=== PATIENT | female | born 1975 | race Caucasian/White ===

== ENCOUNTER 2023-04-30 19:27 | Outpatient (REF) | payer BC, SELFPAY ==
[2023-05-04 10:08] LABS: Age Gdln ACOG Testing Note (.); HPV Aptima Negative (Negative); IGP, Aptima HPV, rfx 16/18,45 Note (.)
== END 2023-04-30 19:28 | disposition home or self-care (01) ==
LOC: LAB 19:27
PROVIDERS: Visit Provider Obstetrics & Gynecology
DX: Z12.4 Encounter for screening for malignant neoplasm of cervix (principal)
CPT/HCPCS: G0145

== ENCOUNTER 2024-05-04 20:50 | Outpatient (REF) | payer BC, SELFPAY ==
[2024-05-08 18:08] LABS: Age Gdln ACOG Testing Note (.); HPV Aptima Negative (Negative); IGP, Aptima HPV, rfx 16/18,45 Note (.)
== END 2024-05-04 20:51 | disposition home or self-care (01) ==
LOC: LAB 20:50
PROVIDERS: Visit Provider Obstetrics & Gynecology
DX: Z01.419 Encounter for gynecological examination (general) (routine) without abnormal findings (principal)
CPT/HCPCS: 87624; 88175

== ENCOUNTER 2024-11-14 08:32 | Outpatient (OUT) | payer BC, SELFPAY ==
--- OUTSIDE RECORDS SUMMARY | 2024-11-14 08:37 | XMS_ITS | CCD ---
Author Organization [facility] Care Team Providers Care Oil Field Rig Builder Name Role Phone DR KAYLEE BARONE Admitting Unavailable ABISAI, DR KAYLEE Zaragoza Attending Unavailable ABISAI, DR KAYLEE Zaragoza Primary Care Unavailable ABISAI, DR KAYLEE Zaragoza Consulting Unavailable MEG, DR HINES Admitting Unavailable MEG, DR HINES Attending Unavailable ABISAI, DR KAYLEE Zaragoza Primary Care Unavailable MEG, DR HINES Consulting Unavailable MEG, DR HINES Admitting Unavailable MEG, DR HINES Attending Unavailable ABISAI, DR KAYLEE Zaragoza Primary Care Unavailable [place], DR IVANA Garcia Consulting Unavailable MEG, DR HINES Consulting Unavailable Kaylee Barone Unavailable Kaylee Barone MD Primary Care Provider [phone] Jeffing FIELD PIPE LINES SUPERVISOR, Olamide De La Torre Unavailable [phone] FLORA WEAVER Attending Unavailable FLORA WEAVER Referring Unavailable HARSHA ROCHA Attending Unavailable HARSHA ROCHA Attending Unavailable Jany Mata MD Primary Care Provider Kaylee Barone MD Unavailable [phone] ISRAEL DILLARD Attending Unavailable JANY MATA Primary Care Unavailable Allergies Allergy Classification Reported Allergen(s) Allergy Type Date of Onset Reaction(s) Facility (1 source) Amino Acids Drug Allergy [facility] Repository (2 sources) Iodine Drug Allergy 09-20-2013 swelling [facility] (1 source) Povidone-Iodine Drug Allergy 05-03-2014 [facility] (10 sources) Iodine Drug Allergy 12-27-1998 Other [facility] Healthcare Work Phone: (10 sources) Lisinopril Allergy to substance 02-27-2023 [facility] Healthcare (10 sources) Povidone-Iodine Drug Allergy 02-27-2023 [facility] Healthcare (12 sources) Povidone-Iodine; Translations: [POVIDONE-IODINE ] Drug All[facility] 07-08-2015 [facility] Medications Current Medications Medication Drug Class(es) Dates Sig (Normalized) Sig (Original) hydroCHLOROthiazide 25 mg oral tablet (11 sources) Thiazide Diuretic Start: 7 hydroCHLOROthiazide (HYDRODiuril) 25 MG tablet 05/29/2017 Active levothyroxine sodium 0.15 mg oral tablet (12 sources) l-Thyroxine Start: 7 take 1 tablet by mouth once daily before breakfast levothyroxine (SYNTHROID) 150 mcg tablet Take 1 tablet by mouth daily before breakfast. 90 tablet 2 04/09/2017 Active Start: 05-29-2015 levothyroxine (Synthroid, Levoxyl) 175 MCG tablet 05/29/2015 Active take 1 tablet by jameel th once daily before breakfast Levothyroxine Sodium 175 MCG TAKE 1 TABLET BY MOUTH EVERYDAY BEFORE BREAKFAST Oral for 90 days Active losartan potassium 50 mg oral tablet (11 sources) Angiotensin 2 Receptor Hosea Start: 05-29-2017 losartan (Cozaar) 50 MG tablet 05/29/2017 Active polyethylene glycol 3350 013874 mg / potassium chloride 2970 mg / sodium bicarbonate 6740 mg / sodium chloride 5860 mg / sodium sulfate 41689 mg powder for oral solution (1 source) Osmotic Laxative Start: 09-16-2024 End: 09-16-2024 peg 3350-Electrolytes (GOLYTELY) 236-22.74-6.74 -5.86 gram suspension Indications: Colon cancer screening Take 4,000 mL by mouth one time only for 1 dose. Refer to printed prep instructions from your provider. 4000 mL 09/16/2024 09/16/2024 Active Problems Active Problems Problem Classification Problem Date Documented Date Episodic/Chronic Cancer of thyroid (1 source) Malignant tumor of thyroid gland; Translations: [Malignant neoplasm of thyroid gland] Onset: 07-08-2015 07-08-2015 Chronic Diabetes mellitus without complication (1 source) Impaired fasting glucose Episodic Essential hypertension (6 sources) Essential (primary) hypertension; Translations: [Essential hypertension] Onset: 04-20-2022 Chronic Immunizations and screening for infectious disease (1 source) Encounter for screening for human papillomavirus (HPV); Translations: [ENC SCREENING HUMAN PAPILLOMAVIRUS] Onset: 04-04-2022 Episodic Neoplasms of unspecified nature or uncertain behavior (2 sources) Neoplasm of uncertain behavior of skin; Translations: [Neoplasm of uncertain behavior of skin] 08-25-2024 Episodic Other acquired deformities (4 sources) Contracture of joint of left ankle; Translations: [Contracture, left ankle] 08-25-2024 Chronic Other connective tissue disease (4 sources) Pain in left foot; Translations: [Pain in left foot] 08-25-2024 Episodic Other connective tissue disease (2 sources) Calcaneal spur of left foot; Translations: [Calcaneal spur, left foot] 08-25-2024 Episodic Other connective tissue disease (4 sources) Plantar fasciitis; Translations: [Plantar fascial fibromatosis] 08-25-2024 Episodic Other screening for suspected conditions (not mental disorders or infectious disease) (12 sources) Encounter for screening mammogram for malignant neoplasm of breast; Translations: [Encounter for screening for malignant neoplasm of cervix] Onset: 04-03-2022 Episodic Residual codes; unclassified (1 source) Family history of malignant neoplasm of breast; Translations: [FAMILY HX MALIG NEOPLASM OF BREAST] Onset: 04-25-2022 Episodic Thyroid disorders (1 source) Hypothyroidism, unspecified; Translations: [HYPOTHYROIDISM UNSPECIFIED] Onset: 04-25-2022 Chronic Viral infection (6 sources) Plantar wart of left foot; Translations: [Plantar wart] Episodic Past or Other Problems Problem Classification Problem Date Documented Da te Episodic/Chronic Cancer of thyroid (1 source) History of malignant neoplasm of thyroid; Translations: [Personal history of malignant neoplasm of thyroid] Onset: 08-08-2016 08-08-2016 Episodic Results Test Name Value Interpretation Reference Range Facility BI MAMMOGRAM SCREENING TOMOS YNTHESIS BILATERALon 06-15-2024 BI MAMMOGRAM SCREENING TOMOSYNTHESIS BILATERAL This is a summary report. The complete report is available in the patient's medical record. If you cannot access the medical record, please contact the sending organization for a detailed fax or copy. Examination: BI MAMMOGRAM SCREENING TOMOSYNTHESIS BILATERAL Clinical History: Breast cancer screening Technique: Screening digital mammography study of both breasts was performed with 2-D and 3-D tomosynthesis imaging. Study was compared to the prior exam dated 04/20/2022. Findings: There is no evidence of interval dominant spiculated mass, grouped microcalcifications, or skin thickening which would be suggestive of malignancy. A few benign-appearing calcifications are seen on the left. Axillary lymph node is noted on the right. IMPRESSION: Impression: No specific evidence of malignancy seen in either breast. BIRADS 2 - Benign DENSITY: The breasts are almost entirely fatty FOLLOW-UP: Routine Screening Mamm ELECTRONICALLY SIGNED BY: Be Almazan M.D. Normal Not Available IGP,APTIMA HPV,AGE GDLNon AGE GDLN ACOG TESTING Note . [facility] Comment on above: TESTS RESULT FLAG UN ITS REF RANGE LAB Clinician Provided Cytology Information Source.............Vagina No. of containers..01 ThinPrep Vial Age Algo ACOG Jennifer... - 01 FLAG LEGEND: L-Low Normal,H-High Normal,LL-Alert Low,HH-Alert High <-Panic Low,>-Panic High,A-Abnormal,AA-Critical Abnormal Performed at: 01 =G [address] [id number] Radha George MD, HPV APTIMA Negative Negative [facility] Comment on above: This nucleic acid am plification test detects fourteen high- risk HPV types (16,18,31,33,35,39,45,51,52,56,58,59,66,68) without differentiation. Performed at: =G - [facility] [address] [id number] Senior Project Engineer: Radha George MD, Phone: [phone] Performed at: - [facility] [id number] Senior Project Engineer: Radha George MD, Phone: [phone] IGP, APTIMA HPV, RFX 16/18,45 Note . [facility] Comment on above: TESTS RESULT FLAG UN ITS REF RANGE LAB DIAGNOSIS: 02 NEGATIVE FOR INTRAEPITHELIAL LESION OR MALIGNANCY. Specimen adequacy: 02 Satisfactory for evaluation. Performed by: 02 Zena Tariq, Systems Engineer (ASCP) . 02 Note: Note 02 The Pap smear is a screening test designed to aid in the detection of premalignant and malignant conditions of the uterine cervix. It is not a diagnostic procedure and should not be used as the sole means of detecting cervical cancer. Both false-positive and false-negative reports do occur. Test Methodology: Note 02 This liquid based ThinPrep(R) pap test was screened with the use of an image guided system. HPV Genotype Reflex Note 02 Criteria not met, HPV Genotype not performed. FLAG LEGEND: L-Low Normal,H-High Normal,LL-Alert Low,HH-Alert High <-Panic Low,>-Panic High,A-Abnormal,AA-Critical Abnormal Performed at: [address] [place] [address] Radha George MD, [facility] e CBC AUTO DIFFon 04-20-2022 BASO # 0.1 103/ul Normal 0.0-0.1 [facility] Comment on above: Performed By: #### C BC #### [facility] [address] [address] [address] Shell Bryant Basophils/100 WBC (Bld) 0.9 % Normal 0.2-2.0 [facility] Comment on above: Performed By: #### C BC #### [facility] [address] [address] [address] Shell Bryant EO # 0.2 103/ul Normal 0.0-0.7 [facility] Comment on above: Performed By: #### C BC #### [facility] [address] [address] [address] Shell Bryant Eosinophils/100 WBC (Bld) 2.8 % Normal 0.9-7.0 [facility] Comment on above: Performed By: #### C BC #### [facility] [address] [address] [address] Shell Bryant Erythrocyte distribution width (RBC) [Ratio] 12.6 % Normal 11.0-15.0 [facility] Comment on above: Performed By: #### C BC #### [facility] [address] [address] [address] Shell Bryant Hematocrit (Bld) [Volume fraction] 42.3 % Normal 36.0-48.0 [facility] Comment on above: Performed By: #### C BC #### [facility] [address] [address] [address] Shell Bryant Hemoglobin (Bld) [Mass/Vol] 14.1 g/dL Normal 12.0-16.0 [facility] Comment on above: Performed By: #### C BC #### [facility] [address] [address] [address] Shell Bryant IG # 0.01 10e3/ul Normal 0.00-0.03 [facility] Comment on above: Performed By: #### C BC #### [facility] [address] [place] [address] Dr. Shell Bryant IG % 0.1 % Normal 0.0-0.5 [facility] Comment on above: Performed By: #### C BC #### [facility] [address] [place] [address] Dr. Shell Bryant LYMPH # 2.0 103/ul Normal 1.2-3.8 [facility] Comment on above: Performed By: #### C BC #### [facility] [address] [place] [address] Dr. Shell Bryant Lymphocytes/100 WBC (Bld) 26.5 % Normal 20.5-60.0 [facility] Comment on above: Performed By: #### C BC #### [facility] [address] [place] [address] Dr. Shell Bryant MANUAL DIFF REQ NO Normal [facility] Comment on above: Performed By: #### C BC #### [facility] [address] [place] [address] Dr. Shell Bryant MCH (RBC) [Entitic mass] 29.7 pg Normal 26.7-34.0 [facility] Comment on above: Performed By: #### C BC #### [facility] [address] [place] [address] Dr. Shell Bryant MCHC (RBC) [Mass/Vol] 33.3 g/dL Normal 29.9-35.2 [facility] Comment on above: Performed By: #### C BC #### [facility] [address] [place] [address] Dr. Shell Bryant MCV (RBC) [Entitic vol] 89.1 fL Normal 81.0-99.0 [facility] Comment on above: Performed By: #### C BC #### [facility] [address] [place] [address] Dr. Shell Bryant MONO # 0.7 103/ul Normal 0.3-0.8 [facility] Comment on above: Performed By: #### C BC #### [facility] [address] [place] [address] Dr. Shell Bryant Monocytes/100 WBC (Bld) 9.6 % Normal 1.7-12.0 [facility] Comment on above: Performed By: #### C BC #### [facility] [address] [place] [address] Dr. Shell Bryant NEUT # 4.5 103/ul Normal 1.4-6.5 [facility] Comment on above: Performed By: #### C BC #### [facility] [address] [place] [address] Dr. Shell Bryant Neutrophils/100 WBC (Bld) 60.1 % Normal 43.0-75.0 [facility] Comment on above: Performed By: #### C BC #### [facility] [address] [place] [address] Dr. Shell Bryant Platelet mean volume (Bld) [Entitic vol] 9.5 fL Normal 9.5-13.5 [facility] Comment on above: Performed By: #### C BC #### [facility] [address] [place] [address] Dr. Shell Bryant PLT 233 103/ul Normal 150-450 [facility] Comment on above: Performed By: #### C BC #### [facility] [address] [place] [address] Dr. Shell Bryant RBC 4.75 106/ul Normal 4.20-5.40 [facility] Comment on above: Performed By: #### C BC #### [facility] [address] [place] [address] Dr. Shell Bryant WBC 7.5 103/ul Normal 4.0-11.0 [facility] Comment on above: Performed By: #### C BC #### [facility] [address] [place] [address] Dr. Shell Bryant FREE T4on 04-20-2022 Free T4 [Mass/Vol] 1.29 ng/dL Normal 0.76-1.46 [facility] Comment on above: Performed By: #### F T4 #### [facility] [address] [address] [address] Shell Bryant MG MAMM SCREEN 3D LEW CADon 04-20-2022 MG MAMM SCREEN 3D LEW CAD Patient: NAYANA CAMARGO Exam Date: 04/20/2022 : 1975 Gender:F Ordering : DR FLORA WEAVER . Admission #: [id number] Family : DR KAYLEE BARONE M.D. Order #: [id number] CLICK HERE TO VIEW EXAM RADIOLOGY REPORT PROCEDURE: MAMMOGRAM SCREENING 3D BILATERAL CAD COMPARISON: MG MAMM SCREEN LEW W CAD, 11/26/2017. MG MAMM SCREEN LEW W CAD, 11/28/2018. INDICATIONS: Screening for malignant neoplasm of breast Calculator Name NCI Breast Cancer Risk Assessment Tool 5 Year Breast Cancer Risk 1.60% Lifetime Breast Cancer Risk 17.60% Personal Breast Cancer No Personal Ovarian Cancer No Treatments Thyroidectomy with Chemotherapy Family Cancers Mother with breast cancer at age 56. LOCATION: [facility] BREAST COMPOSITION: Scattered areas fibroglandular density. FINDINGS: DIAGNOSTIC CATEGORY 1--NEGATIVE. NO CHANGE FROM COMPARISON ASSESSMENT. Scattered benign-appearing calcifications are present. RIGHT BREAST: No significant suspicious finding. LEFT BREAST: No significant suspicious finding. RECOMMENDATIONS: ROUTINE MAMMOGRAM AND CLINICAL EVALUATION IN 12 MONTHS. PLEASE NOTE: A NORMAL MAMMOGRAM DOES NOT EXCLUDE THE POSSIBILITY OF BREAST CANCER. A CLINICALLY SUSPICIOUS PALPABLE LUMP SHOULD BE BIOPSIED. Dictated by: Ivana Fajardo MD on 04/20/2022 at 13:24 Approved by: Ivana Fajardo MD on 04/20/2022 at 13:36 Normal [facility] PROF CHEM 8 (BAS METB)on Anion gap [Moles/Vol] 12.7 mmol/L Normal [facility] Comment on above: Performed By: #### B MP, TSH #### [facility] [address] [address] [address] Shell Bryant Calcium [Mass/Vol] 8.7 mg/dL Normal 8.5-10.1 [facility] Comment on above: Performed By: #### B MP, TSH #### [facility] [address] [address] [address] Shell Bryant Chloride [Moles/Vol] 103 mmol/L Normal 98-107 [facility] Comment on above: Performed By: #### B MP, TSH #### [facility] [address] [address] [address] Shell Bryant CO2 [Moles/Vol] 28.1 mmol/L Normal 21.0-32.0 [facility] Comment on above: Performed By: #### B MP, TSH #### [facility] [address] [address] [address] Shell Bryant Creatinine [Mass/Vol] 0.80 mg/dL Normal 0.55-1.02 [facility] Comment on above: Performed By: #### B MP, TSH #### [facility] [address] [address] [address] Shell Bryant EGFR-AF AUSTRIAN >60 Normal >=60 [facility] Comment on above: Performed By: #### B MP, TSH #### [facility] [address] [address] [address] Shell Bryant EGFR-NON AF AUSTRIAN >60 Normal >=60 [facility] Comment on above: Performed By: #### B MP, TSH #### [facility] [address] [address] [address] Shell Bryant Glucose [Mass/Vol] 111 mg/dL Critically high 74-[address] [facility] Comment on above: Performed By: #### B MP, TSH #### [facility] [address] [address] [address] Shell Bryant Potassium [Moles/Vol] 3.8 mmol/L Normal 3.5-5.1 [facility] Comment on above: Performed By: #### B MP, TSH #### [facility] [address] [address] [address] Shell Bryant Sodium [Moles/Vol] 140 mmol/L Normal 136-145 [facility] Comment on above: Performed By: #### B MP, TSH #### [facility] [address] [address] [address] Shell Bryant Urea nitrogen [Mass/Vol] 17.0 mg/dL Normal 7.0-18.0 [facility] Comment on above: Performed By: #### B MP, TSH #### [facility] [address] [place] [address] Dr. Shell Bryant Urea nitrogen/Creatinine [Mass ratio] 21.2 mg/mg Normal [facility] Comment on above: Performed By: #### B MP, TSH #### [facility] [address] [place] [address] Dr. Shell Bryant TSHon 04-20-2022 TSH 0.469 uIU/mL Normal 0.358-3.740 [facility] Comment on above: Performed By: #### B MP, TSH #### [facility] [address] [place] [address] Dr. Shell Bryant PAP ACOG PANEL 2: 30 to 65on 04-07-2022 . . Normal [facility] Comment on above: Result Comment: Perf ormed at: WB Performed By: #### [id number] #### [facility] [address] [place] [address] Dr. Shell Bryant Age Gdln ACOG Testing -66 [facility] Comment on above: Performed By: #### [id number] #### [facility] [address] [place] [address] Dr. Shell Bryant DIAGNOSIS: Comment Normal [facility] Comment on above: Result Comment: NEGA TIVE FOR INTRAEPITHELIAL LESION OR MALIGNANCY. Performed at: WB Performed By: #### [id number] #### [facility] [address] [place] [address] Dr. Shell Bryant HPV Aptima Negative Normal Negative [facility] Comment on above: Result Comment: This nucleic acid amplification test detects fourteen high-risk HPV types (16,18,31,33,35,39,45,51,52,56,58,59,66,68) without differentiation. Performed at: =G Performed By: #### [id number] #### [facility] [address] [place] [address] Dr. Shell Bryant Methodology: Comment Normal [facility] Comment on above: Result Comment: This liquid based ThinPrep(R) pap test was screened with the use of an image guided system. Performed at: WB Performed By: #### [id number] #### [facility] [address] [place] [address] Dr. Shell Bryant Note: Comment Normal [facility] Comment on above: Result Comment: The Pap smear is a screening test designed to aid in the detection of premalignant and malignant conditions of the uterine cervix. It is not a diagnostic procedure and should not be used as the sole means of detecting cervical cancer. Both false-positive and false-negative reports do occur. . Performed at: WB Performed By: #### [id number] #### [facility] [address] [place] [address] Dr. Shell Bryant Performed by: Comment Normal [facility] Comment on above: Result Comment: Lucille Kumar Systems Engineer (ASCP) Performed at: WB Performed By: #### [id number] #### [facility] [address] [place] [address] Dr. Shell Bryant Specimen adequacy: Comment Normal [facility] Comment on above: Result Comment: Sati sfactory for evaluation. No endocervical component is identified. Performed at: WB Performed By: #### 4 [id number] #### [facility] [address] [place] [address] Dr. Shell Bryant Vital Signs Date Time Vital Sign Value Performing Clinician Facility 09-07-2024 08:43-0500 Body height 175.3 cm Harsha Rocha DPM Work Phone: [facility] 09-07-2024 08:43-0500 Body mass index (BMI) [Ratio] 36.92 kg/m2 Harsha Rocha DPM Work Phone: [facility] 09-07-2024 08:43-0500 Body weight 113.4 kg Harsha Rocha DPM Work Phone: [facility] 09-07-2024 08:43-0500 Respiratory rate 16 /min Harsha Rocha DPM Work Phone: [facility] 08-25-2024 15:57-0500 Body height 175.3 cm Harsha Rocha DPM Work Phone: [facility] 08-25-2024 15:57-0500 Body mass index (BMI) [Ratio] 36.92 kg/m2 Harsha Rocha DPM Work Phone: [facility] 08-25-2024 15:57-0500 Body weight 113.4 kg Harsha Rocha DPM Work Phone: [facility] 08-25-2024 15:57-0500 Respiratory rate 18 /min Harsha Rocha DPM Work Phone: [facility] 05-04-2024 09:01-0400 Body mass index (BMI) [Ratio] 36.94 kg/m2 Flora Meg DO Work Phone: [facility] 05-04-2024 09:01-0400 Body weight 113.45 kg Flora Meg DO Work Phone: [facility] 05-04-2024 09:01-0400 Diastolic blood pressure 78 mm[Hg] Flora Meg DO Work Phone: [facility] 05-04-2024 09:01-0400 Systolic blood pressure 118 mm[Hg] Flora Meg DO Work Phone: [facility] 01-09-2023 08:45-0400 Body height 172.72 cm Kaylee Barone Other [facility] Other 01-09-2023 08:45-0400 Body mass index (BMI) [Ratio] 39.22 kg/m2 Kaylee Barone Other [facility] Other 01-09-2023 08:45-0400 Body weight 117.03 kg Kaylee Barone Other [facility] Other 01-09-2023 08:45-0400 Diastolic blood pressure 87 mm[Hg] Kaylee Barone Other [facility] Other 01-09-2023 08:45-0400 Systolic blood pressure 138 mm[Hg] Kaylee Abisai Other [facility] Other Encounters Encounter Date Encounter Type Care Provider Facility Start: 09-16-2024 End: 09-16-2024 ambulatory Israel Dillard PA-C Work Phone: Gastroenterology Comment on above: Colon cancer screeni ng (Primary Dx) Start: 09-16-2024 End: 09-16-2024 Telemedicine consultation with patient Israel Dillard PA-C Work Phone: Gastroenterology Start: 09-07-2024 End: 09-07-2024 Bamboo flowsheet Harsha Rocha DPM Work Phone: [facility] Start: 09-07-2024 End: 09-07-2024 Bamboo flowsheet Harsha Rocha DPM Work Phone: [facility] Start: 09-07-2024 End: 09-07-2024 Office outpatient visit 15 minutes Harsha Rocha DPM Work Phone: [facility] Comment on above: Verruca plantaris (P rimary Dx); Foot pain, left; Plantar fasciitis; Contracture of left ankle Start: 09-07-2024 End: 09-07-2024 ambulatory HARSHA ROCHA Not Available Start: 08-25-2024 End: 08-25-2024 Office outpatient new 30 minutes Harsha Rocha DPM Work Phone: [facility] Comment on above: Neoplasm of uncertai n behavior of skin (Primary Dx); Verruca plantaris; Foot pain, left; Heel spur, left; Plantar fasciitis; Contracture of left ankle Start: 08-25-2024 End: 08-25-2024 ambulatory HARSHA ROCHA Not Available Start: 08-25-2024 End: 08-25-2024 Bamboo flowsheet Harsha Rocha DPM Work Phone: [facility] Start: 08-25-2024 End: 08-25-2024 Bamboo flowsheet Harsha Rocha DPM Work Phone: [facility] Start: 06-15-2024 End: 06-15-2024 ambulatory FLORA MEG Not Available Start: 05-04-2024 End: 05-04-2024 Bamboo flowsheet Flora Meg DO Work Phone: [facility] Start: 05-04-2024 End: 05-08-2024 Bamboo flowsheet Flora Meg DO Work Phone: [facility] Start: 05-04-2024 End: 05-08-2024 [facility] Result Encounter Flora Meg DO Work Phone: [facility] Unsolicited Start: 05-04-2024 End: 05-04-2024 ambulatory FLORA MEG Not Available Start: 05-04-2024 End: 05-04-2024 Patient encounter procedure Flora Meg DO Work Phone: [facility] Work Phone: Start: 05-04-2024 End: 05-04-2024 Periodic preventive med est patient 40-64yrs Flora Meg DO Work Phone: [facility] Comment on above: Well woman exam with routine gynecological exam; Breast cancer screening by mammogram Start: 01-09-2023 End: 01-09-2023 ambulatory Kaylee Barone Other [facility] Other Start: 01-09-2023 Office outpatient vi sit 15 minutes Kaylee Barone [facility] Start: 04-20-2022 End: 04-21-[address] KAYLEE BARONE Facility:H1 Start: 04-03-2022 End: 04-03-[address] FLORA WEAVER Facility:[facility]1 Procedures Date Procedure Procedure Detail Performing Clinician Start: 06-15-2024 Mammography Harsha rojas DPM Work Phone: Start: 05-04-2024 IGP,APTIMA HPV,AGE GDLN Flora Weaver DO Work Phone: Plan of Treatment Date Care Activity Detail Author Start: 06-15-2025 Screening for malign ant neoplasm of breast [facility] Start: 05-10-2025 End: 05-10-2025 Patient encounter procedure 05/10/2025 9:00 AM EDT Office Visit [facility] [address] [place] [id number] Flora Weaver, DO [address] [place] [address] [facility] Start: 10-05-2024 End: 10-05-2024 Patient encounter procedure 10/05/2024 1:00 PM EST Appointment [facility] [address] [place] [address] [address] [place] [address] [facility] Start: 09-07-2024 End: 09-07-2024 Patient encounter procedure [facility] Comment on above: Verruca plantaris (P rimary Dx); Foot pain, left; Plantar fasciitis; Contracture of left ankle Start: 08-25-2024 End: 08-25-2024 Patient encounter procedure 08/25/2024 4:10 PM EST Office Visit [facility] [address] [place] [address] Harsha Rocha DPM [address] [facility] [place], [place] [address] [place] [address] Arrived [facility] Comment on above: Arrived Start: 06-15-2024 End: 06-15-2024 Professional / ancillary services management 06/15/2024 3:30 PM EDT Ancillary Procedure [facility] [address] [place] [address] [facility] Start: 05-04-2024 End: 07-04-2025 MG Breast - bilateral Screening Bilateral screening mammogram Imaging Routine Breast cancer screening by mammogram Expected: 05/04/2024 (Approximate), Expires: 07/04/2025 [facility] Work Phone: Comment on above: Expected: 05/04/2024 (Approximate), Expires: 07/04/2025 Start: 04-19-2024 Covid-19 Vaccine ( season) Covid-19 Vaccine ( season) [facility] Start: 04-19-2024 Influenza vaccination Influenza Vacc ine (#1) [facility] Start: 2021 Diabetes Screening Diabetes Screenin g [facility] Start: 2021 Lipid panel Lipid Screening [facility] Start: 2021 Screening for malign ant neoplasm of colon [facility] Start: 1997 Screening for malign ant neoplasm of cervix Cervical Cancer Screening [facility] Start: 1995 Hepatitis B Vaccine (1 of 3 - 19+ 3-dose series) Hepatitis B Vaccine (1 of 3 - 19+ 3-dose series)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
[2024-11-14 09:03] LABS: Basophils Absolute Auto 0.1 10^3/uL (0.0-0.1); Eosinophils Absolute Auto 0.2 10^3/uL (0.0-0.7); Eosinophils Percent Auto 2.9 % (0.9-7.0); Hematocrit 42.9 % (36.0-48.0); Hemoglobin 14.6 g/dL (12.0-16.0); Immature Granulocytes Abs Auto 0.01 10^3/uL (0.00-0.03); Immature Granulocytes Pct Auto 0.1 % (0.0-0.5); Mean Corpuscular Hemoglobin 30.3 pg (26.7-34.0); Mean Platelet Volume 9.6 fL (9.5-13.5); Monocytes Absolute Auto 0.7 10^3/uL (0.3-0.8); Monocytes Percent Auto 9.1 % (1.7-12.0); Neutrophils Absolute Auto 4.2 10^3/uL (1.4-6.5); Neutrophils Percent Auto 58.9 % (43.0-75.0); Platelet Count 250 10^3/uL (150-450); Red Blood Count 4.82 10^6/uL (4.20-5.40); Red Cell Distribution Width 12.7 % (11.0-15.0); White Blood Count 7.2 10^3/uL (4.0-11.0)
[2024-11-14 09:12] LABS: Creatinine Urine Random 208.89 mg/dL (20.00-300.00); Microalbumin Urine Random <1.3 mg/dL (<=30.0)
[2024-11-14 09:41] LABS: Free T4 1.09 ng/dL (0.76-1.46)
[2024-11-14 09:44] LABS: Alanine Aminotransferase 23 U/L (14-59); Albumin Globulin Ratio 1.2; Albumin Level 3.8 g/dL (3.4-5.0); Alkaline Phosphatase 107 U/L (46-116); Aspartate Amino Transferase 16 U/L (15-37); Bilirubin Total 0.6 mg/dL (0.2-1.0); Calcium 8.7 mg/dL (8.5-10.1); Carbon Dioxide 30.9 mmol/L (21.0-32.0); Chloride 106 mmol/L (98-107); Chol HDL Ratio 3.5; Cholesterol 186 mg/dL (<=200); Estimated GFR (African America >60 (>=60 mL/min/1.73m^2); Estimated GFR (Non-African Ame >60 (>=60 mL/min/1.73m^2); Globulin 3.1 g/dL; Glucose 120 mg/dL (74-106); HDL Cholesterol 53 mg/dL (40-60); LDL Cholesterol Calculated 118.2 mg/dL; Potassium 3.9 mmol/L (3.5-5.1); Sodium 144 mmol/L (136-145); Thyroid Stimulating Hormone 1.015 uIU/mL (0.358-3.740); Total Protein 6.9 g/dL (6.4-8.2); Triglycerides 74 mg/dL (<=150); VLDL CHOLESTEROL 14.8 mg/dL
== END 2024-11-14 08:33 | disposition home or self-care (01) ==
LOC: LAB 08:35
PROVIDERS: PCP Family Medicine; Visit Provider Family Medicine
DX: Z00.00 Encounter for general adult medical examination without abnormal findings (principal); E03.9 Hypothyroidism, unspecified; I10 Essential (primary) hypertension
CPT/HCPCS: 36415; 80053; 80061; 82043; 82570; 84439; 84443; 85025

== ENCOUNTER 2025-06-16 20:00 | Outpatient (REF) | payer BC, SELFPAY ==
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
--- OUTSIDE RECORDS SUMMARY | 2025-06-16 20:02 | XMS_ITS | CCD ---
Author Organization [facility] Care Team Providers Care Fur Dry Cleaner Hand Name Role Phone DR KAYLEE BARONE Admitting [...] ABISAI, DR KAYLEE Zaragoza Primary Care Unavailable WATERLOO, DR IVANA Garcia Consulting Unavailable MEG, DR HINES Consulting Unavailable Kaylee Barone Unavailable Kaylee Barone MD Primary Care Provider Apling SALES MERCHANDISER, Olamide De La Torre Unavailable FLORA WEAVER Attending Unavailable FLORA WEAVER Referring Unavailable HARSHA ROCHA Attending Unavailable HARSHA ROCHA Attending Unavailable Jany Mata MD Primary Care Provider Kaylee Barone MD Unavailable ISRAEL DILLARD Attending Unavailable JANY MATA Primary Care Unavailable Allergies Allergy ClassificationReported Allergen(s)Allergy TypeDate of OnsetReaction(s) Facility (1 source)Amino AcidsDrug [facility]ergyPro[facility] (2 sources)IodineDrug Zaqilov47-90-4987ppnxsprjScf [facility] Repository (1 source)Povidone-IodineDrug Gptvgnk40-97-5918Rws [facility] Repository (10 sources)IodineDrug Zmkgneg38-98-3801ZfpnqHZTJ Healthcare Work Phone: (10 sources)LisinoprilAllergy to idambzqsn79-14-7350OQBJ Healthcare (10 sources)Povidone-IodineDrug Meswzei95-77-0949PAZM [facility] (12 sources)Povidone-Iodine; Translations: [POVIDONE-IODINE]Drug Allergy 59-72-1732RazoeGBKQCitizens Memorial Healthcare Medications Current Medications MedicationDrug Class(es)DatesSig (Normalized)Sig (Original)hydroCHLOROthiazide 25 mg oral tablet (11 sources)Thiazide DiureticStart: 03-39-8864qfolbTCRBMVxskmgada (HYDRODiuril) 25 MG tablet 05/29/2017 Activelevothyroxine sodium 0.15 mg oral tablet (12 sources)l-ThyroxineStart: 29-66-9590rrcc 1 tablet by mouth once daily before breakfastlevothyroxine (SYNTHROID) 150 mcg tablet Take 1 tablet by mouth daily before breakfast. 90 tablet ActiveStart: 79-52-6602rnmhpdnkrxetd (Synthroid, Levoxyl) 175 MCG tablet 05/29/2015 Activetake 1 tablet by mouth once daily before breakfastLevothyroxine Sodium 175 MCG TAKE 1 TABLET BY MOUTH EVERYDAY BEFORE BREAKFAST Oral for 90 days Activelosartan potassium 50 mg oral tablet (11 sources)Angiotensin 2 Receptor BlockerStart: 23-16-2703rsauxnlk (Cozaar) 50 MG tablet 05/29/2017 Activepolyethylene glycol 3350 494101 mg / potassium chloride 2970 mg / sodium bicarbonate 6740 mg / sodium chloride 5860 mg / sodium sulfate 61906 mg powder for oral solution (1 source)Osmotic LaxativeStart: 09-16-2024 End: 96-77-9432smc 3350-Electrolytes (GOLYTELY) 236-22.74-6.74 -5.86 gram suspension Indications: Colon cancer screening Take 4,000 mL by mouth one time only for 1 dose. Refer to printed prep instructions from yourprovider. 4000 mL 09/16/2024 09/16/2024 Active Problems Active Problems Problem ClassificationProblemDateDocumented DateEpisodic/ChronicCancer of thyroid (1 source)Malignant tumor of thyroid gland; Translations: [Malignant neoplasm of thyroid gland]Onset: 974550-40-9223EgedbeuSvhqsuwz mellitus without complication (1 source)Impaired fasting glucoseEpisodicEssential hypertension (6 sources)Essential (primary) hypertension; Translations: [Essential hypertension]Onset: 27-09-9588NrvcipcWvwchpyquznyt and screening for infectious disease (1 source)Encounter for screening for human papillomavirus (HPV); Translations: [ENC SCREENING HUMAN PAPILLOMAVIRUS]Onset: 19-75-4132ZbtuanqaSjfadvlem of unspecified nature or uncertain behavior (2 sources)Neoplasm of uncertain behavior of skin; Translations: [Neoplasm of uncertain behavior of skin]12-34-4039HfvngtvhRhoxx acquired deformities (4 sources)Contracture of joint of left ankle; Translations: [Contracture, left ankle]40-39-9591LmfexisTijrr connective tissue disease (4 sources)Pain in left foot; Translations: [Pain in left foot]08-25-2024 EpisodicOther connective tissue disease (2 sources)Calcaneal spur of left foot; Translations: [Calcaneal spur, left foot]33-98-1939WkarioidOajyl connective tissue disease (4 sources)Plantar fasciitis; Translations: [Plantar fascial fibromatosis] 32-33-9101CqqnjydxBlbde screening for suspected conditions (not mental disorders or infectious disease) (12 sources)Encounter for screening mammogram for malignant neoplasm of breast; Translations: [Encounter for screening for malignant neoplasm of cervix]Onset: 30-32-5431UzuptboeJdtmfuhb codes; unclassified (1 source)Family history of malignant neoplasm of breast; Translations: [FAMILY HX MALIG NEOPLASM OF BREAST]Onset: 52-18-9014ApmhuxlhIwguiny disorders (1 source)Hypothyroidism, unspecified; Translations: [HYPOTHYROIDISM UNSPECIFIED]Onset: 88-93-5351RadnfteMnpyi infection (6 sources)Plantar wart of left foot; Translations: [Plantar wart]Episodic Past or Other Problems Problem ClassificationProblemDateDocumented DateEpisodic/ChronicCancer of thyroid (1 source)History of malignant neoplasm of thyroid; Translations: [Personal history of malignant neoplasm of thyroid]Onset: 624544-23-5726Qcbdhaoy Results Test NameValueInterpretationReference RangeFacilityBI MAMMOGRAM SCREENING TOMOSYNTHESIS BILATERALon 09-72-2764ZB MAMMOGRAM SCREENING TOMOSYNTHESIS BILATERALThis is a summary report. The complete report [...] Screening Mamm ELECTRONICALLY SIGNED BY: Be Almazan M.D.NormalNot AvailableIGP,APTIMA HPV,AGE GDLNon 70-68-6446BWI GDLN ACOG TESTINGNote.NOMS HealthcareComment on above:TESTS RESULT FLAG UNITS REF RANGE LAB Clinician Provided Cytology Information Source.............Vagina No. of containers..01 ThinPrep Vial Age Algo ACOG Jennifer... 30-65 01 FLAG LEGEND: L-Low Normal,H-High Normal,LL-Alert Low,HH-Alert High <-Panic Low,>-Panic High,A-Abnormal,AA-Critical Abnormal Performed at: 01 =G [address] StreetChatoV [address] Radha George MD, HPV APTIMANegativeNegativeNOMS HealthcareComment on above:This nucleic acid amplification test detects fourteen high- risk HPV types (16,18,31,33,35,39,45,51,52,56,58,59,66,68) without differentiation. Performed at: = - [facility] [id number] Kitchen And Bath Designer: Radha George MD, Phone: [phone] Performed at: - [facility], [place] [id number] Kitchen And Bath Designer: Radha George MD, Phone: [phone] IGP, APTIMA HPV, RFX 16/18,45Note.NOMS HealthcareComment on above:TESTS RESULT FLAG UNITS REF RANGE LAB DIAGNOSIS: 02 NEGATIVE FOR INTRAEPITHELIAL LESION OR MALIGNANCY. Specimen adequacy: 02 Satisfactory for evaluation. Performed by: Benjie Tariq, Station Mechanic Apprentice (ASCP) . 02 Note: Note 02 The [...] <-Panic Low,>-Panic High,A-Abnormal,AA-Critical Abnormal Performed at: 02 WB [facility] [address] [place] [address] Radha George MD, [facility] AUTO DIFFon 54-64-8481XHYZ #0.1 103/ulNormal0.0-0.1 [facility] HospitalComment on above:Performed By: #### CBC #### [facility] [address] [place] [address] Dr. Shell BryantBasophils/100 WBC (Bld)0.9 %Normal0.2-2.0[facility] Comment on above:Performed By: #### CBC #### [facility] [address] [address] [address] Shell Ball #0.2 103/ulNormal0.0-0.7The [facility] HospitalComment on above: Performed By: #### CBC #### [facility] [address] [place] [address] Dr. Shell Chinosinophils/100 WBC (Bld)2.8 %Normal0.9-7.0[facility] Comment on above:Performed By: #### CBC #### [facility] [address] [place] [address] Dr. Shell Chinrythrocyte distribution width (RBC) [Ratio]12.6 %Mfxfpd76.0-15.0 [facility] HospitalComment on above:Performed By: #### CBC #### [facility] [address] [place] [address] Dr. Shell BryantHematocrit (Bld) [Volume fraction]42.3 %Xuswva62.0-48.0[facility] HospitalComment on above:Performed By: #### CBC #### [facility] [address] [place] [address] Dr. Shell BryantHemoglobin (Bld) [Mass/Vol]14.1 g/eWLyhsmo10.0-16.0The [facility] HospitalComment on above:Performed By: #### CBC #### [facility] [address] [place] [address] Dr. Shell Agarwal #0.01 10e3/ulNormal0.00-0.03The [facility] HospitalComment on above:Performed By: #### CBC #### [facility] [address] [place] [address] Dr. Shell Agarwal %0.1 %Normal0.0-0.5The [facility] HospitalComment on above: Performed By: #### CBC #### [facility] [address] [place] [address] Dr. Shell Heck #2.0 103/ulNormal1.2-3.8The [facility] HospitalComment on above:Performed By: #### CBC #### [facility] [address] [place] [address] Dr. Shell Heckhocytes/100 WBC (Bld)26.5 %Owzlln37.5-60.0The [facility] HospitalComsheridan community hospital on above:Performed By: #### CBC #### [facility] [address] [place] [address] Dr. Shell UriasUAL DIFF REQNONormalThe [facility] HospitalComment on above: Performed By: #### CBC #### [facility] [address] [place] [address] Dr. Shell Fitzgerald (RBC) [Entitic mass]29.7 xqGikolc03.7-34.0The [facility] HospitalComment on above:Performed By: #### CBC #### [facility] [address] [place] [address] Dr. Shell Fitzgerald (RBC) [Mass/Vol]33.3 g/mBAngffi43.9-35.2The [facility] HospitalComment on above:Performed By: #### CBC #### [facility] [address] [address] [address] Shell FitzgeraldV (RBC) [Entitic vol]89.1 dOWgkbdq01.0-99.0The [facility] HospitalComment on above:Performed By: #### CBC #### [facility] [address] [place] [address] Dr. Shell Orr #0.7 103/ulNormal0.3-0.8The [facility] HospitalComment on above:Performed By: #### CBC #### [facility] [address] [place] [address] Dr. Shell Lamarocytes/100 WBC (Bld)9.6 %Normal1.7-12.0The [facility] Comment on above:Performed By: #### CBC #### [facility] [address] [place] [address] Dr. Shell Trevizo #4.5 103/ulNormal1.4-6.5The [facility] HospitalComment on above:Performed By: #### CBC #### [facility] [address] [place] [address] Dr. Shell Mccannutrophils/100 WBC (Bld)60.1 %Qftglq91.0-75.0The [facility] HospitalComment on above:Performed By: #### CBC #### [facility] [address] [place] [address] Dr. Shell Mckeonlet mean volume (Bld) [Entitic vol]9.5 fLNormal9.5-13.5The [facility] HospitalComment on above:Performed By: #### CBC #### [facility] [address] [place] [address] Dr. Shell BryantPLT233 103/tfDahvag095-899Umz [facility] HospitalComment on above: Performed By: #### CBC #### [facility] [address] [place] [address] Dr. Shell BryantRBC4.75 106/ulNormal4.20-5.40The [facility] HospitalComment on above:Performed By: #### CBC #### [facility] [address] [address] [address] Shell BryantWBC7.5 103/ulNormal4.0-11.0The [facility] HospitalComment on above: Performed By: #### CBC #### [facility] [address] [address] [address] Shell BryantFRWEI T4on 95-46-6535Rmwu T4 [Mass/Vol]1.29 ng/dLNormal0.76-1.46 The [facility] HospitalComment on above:Performed By: #### FT4 #### [facility] [address] [address] [address] Shell BryantMG MAMM SCREEN 3D LEW CADon 47-70-7648CD MAMM SCREEN 3D LEW CAD Patient: NAYANA CAMARGO Exam Date: 04/20/2022 : 1975 Gender:F Ordering : DR FLORA WEAVER . Admission #: [id number] Family : DR KAYLEE BARONE M.D. Order #: [id number] CLICK HERE TO VIEW EXAM RADIOLOGY REPORT [...] breast cancer at age 57. LOCATION: [facility] BREAST COMPOSITION: Scattered areas fibroglandular density. [...] by: Ivana Fajardo MD on 04/20/2022 at 13:36[facility] Medical CenterPROF CHEM 8 (BAS METB)on 83-11-7776Fxlgb gap [Moles/Vol]12.7 mmol/LNormalThe [facility] HospitalComment on above:Performed By: #### BMP, TSH #### [facility] [address] [place] [address] Dr. Shell BryantCalcium [Mass/Vol]8.7 mg/dLNormal8.5-10.1The [facility] Comment on above:Performed By: #### BMP, TSH #### [facility] [address] [address] [address] Shell BryantChloride [Moles/Vol]103 mmol/GQhjwxa98-624Jqv [facility] Comment on above:Performed By: #### BMP, TSH #### [facility] [address] [place] [address] Dr. Shell BryantCO2 [Moles/Vol]28.1 mmol/LJrjjgh55.0-32.0[facility] Comment on above:Performed By: #### BMP, TSH #### [facility] [address] [place] [address] Dr. Shell BryantCreatinine [Mass/Vol]0.80 mg/dLNormal0.55-1.02The [facility] HospitalComment on above:Performed By: #### BMP, TSH #### [facility] [address] [place] [address] Dr. Shell ChinGFR-AF LATVIAN>60Normal>=60The [facility] HospitalComment on above:Performed By: #### BMP, TSH #### [facility] [address] [place] [address] Dr. Shell ChinGFR-NON AF LATVIAN>60Normal>=60The [facility] HospitalComment on above:Performed By: #### BMP, TSH #### [facility] [address] [place] [address] Dr. Shell BryantGlucose [Mass/Vol]111 mg/dLCritically lneb71-809Tmj [facility] HospitalComment on above:Performed By: #### BMP, TSH #### [facility] [address] [place] [address] Dr. Shell BryantPotassium [Moles/Vol]3.8 mmol/LNormal3.5-5.1[facility] Comment on above:Performed By: #### BMP, TSH #### [facility] [address] [place] [address] Dr. Shell Bairesdium [Moles/Vol]140 mmol/VTeohvu732-521ExrProtestant Deaconess Hospital Comment on above:Performed By: #### BMP, TSH #### [facility] [address] [place] [address] Dr. Shell Banks nitrogen [Mass/Vol]17.0 mg/dLNormal7.0-18.0The [facility] HospitalComment on above:Performed By: #### BMP, TSH #### [facility] [address] [place] [address] Dr. Shell Banks nitrogen/Creatinine [Mass ratio]21.2 mg/mgNoCleveland Clinic Euclid HospitalComment on above:Performed By: #### BMP, TSH #### [facility] [address] [place] [address] Dr. Shell Cui 02-81-3264EXW1.469 uIU/mLNormal0.358-3.740The [facility] HospitalComment on above:Performed By: #### BMP, TSH #### [facility] [address] [place] [address] Dr. Shell Ziegler ACOG PANEL 2: 30 to 65on 04-07-2022..NormalThe [facility] HospitalComment on above:Result Comment: Performed at: WBPerformed By: #### [id number] #### [facility] [address] [place] [address] Dr. Shell West Gdln ACOG Tppliwr61-13JtpjyeVofCleveland Clinic Euclid HospitalComment on above:Performed By: #### [id number] #### [facility] [address] [place] [address] Dr. Shell BryantDIAGNOSIS:CommentCincinnati Children's Hospital Medical CenterComment on above: Result Comment: NEGATIVE FOR INTRAEPITHELIAL LESION OR MALIGNANCY. Performed at: WBPerformed By: #### [id number] #### [facility] [address] [place] [address] Dr. Shell BryantHPV AptimaNegativeNormalNegativeThe [facility] on above:Result Comment: This nucleic acid amplification test detects fourteen high-risk HPV types (16,18,31,33,35,39,45,51,52,56,58,59,66,68) without differentiation. Performed at: =GPerformed By: #### [id number] #### [facility] [address] [place] [address] Dr. Shell BryantMethodology:CommentBucyrus Community Hospital on above: Result Comment: This liquid based ThinPrep(R) pap test was screened with the use of an image guided system. Performed at: WBPerformed By: #### [id number] [address] [address] [address] Shell BryantNote:CommentBucyrus Community Hospital on above:Result Comment: The Pap smear is a screening test designed to aid in the detection of premalignant and malignant conditions of the uterine cervix. It is not a diagnostic procedure and should not be used as the sole means of detecting cervical cancer. Both false-positive and false-negative reports do occur. . Performed at: WBPerformed By: #### [id number] #### [facility] [address] [place] [address] Dr. Shell BryantPerformed by:CommentBucyrus Community Hospital on above: Result Comment: Melly Kumar, Station Mechanic Apprentice (ASCP) Performed at: WBPerformed By: #### [id number] #### [facility] [address] [place] [address] Dr. Shell BryantSpecimen adequacy:CommentBucyrus Community Hospital on above:Result Comment: Satisfactory for evaluation. No endocervical component is identified. Performed at: WBPerformed By: #### [id number] #### [facility] [address] [place] [address] Dr. Shell Bryant Vital Signs Date TimeVital SignValuePerforming LnsudiasaBzfyyqph43-18-9989 08:43-0500Body .3 cmNicholas Brown DPM Work Phone: [facility] WestYybvlrvvjv92-39-0069 08:43-0500Body mass index (BMI) [Ratio]36.92 kg/t0Cdnkpngm Brown DPM Work Phone: [facility] WestXmtjiwaslt54-48-6208 08:43-0500Body ytkqqu580.4 kgNicholas Brown DPM Work Phone: [facility] WestVvzoantypf70-75-6344 08:43-0500Respiratory rate16 /minNicholas Brown DPM Work Phone: [facility] WestQqxxvnxndg12-69-7415 15:57-0500Body dlwhyx980.3 cmNicholas Brown DPM Work Phone: [facility] WestRobvwkjrnq12-05-0361 15:57-0500Body mass index (BMI) [Ratio]36.92 kg/b2Sxkovdpt Brown DPM Work Phone: [facility] WestJmvuinwoyr28-83-4906 15:57-0500Body vilzpg045.4 kgNicholas Brown DPM Work Phone: [facility] WestQjbqflnabt23-19-9122 15:57-0500Respiratory rate18 /minNicholas Brown DPM Work Phone: [facility] WestLdhuemjtor91-81-7522 09:01-0400Body mass index (BMI) [Ratio]36.94 kg/b1Zeona Meg DO Work Phone: [facility] WestTstacaxaan17-38-1713 09:01-0400Body ytbysj736.45 kgCorey Meg DO Work Phone: [facility] WestIxrulfsnns72-81-2421 09:01-0400Diastolic blood mm[Hg]Flora Meg DO Work Phone: [facility] WestHmzzorohpc51-95-1119 09:01-0400Systolic blood amspylfy943 mm[Hg]Flora Meg DO Work Phone: [facility] WestBozxkmzhtl73-84-3430 08:45-0400Body saksgp634.72 cmKaylee Barone Other [employer] Other 05-24-2023 08:45-0400Body mass index (BMI) [Ratio] 39.22 kg/o7Ddvaic Barone Other [facility] [employer] Other 05-24-2023 08:45-0400Body .03 kgKaylee Barone Other [facility] [employer] Other 05-24-2023 08:45-0400Diastolic blood icptodon16 mm[Hg] Kaylee Barone Other [employer] Nutraceuticalssaint [facility] [employer] Other 05-24-2023 08:45-0400Systolic blood ojoweqfq805 mm[Hg] Kaylee Barone Other [employer] Other Encounters Encounter DateEncounter TypeCare ProviderFacilityStart: 09-16-2024 End: 09-49-7496gzvwbchytjZchgvDaniel Dillard PA-C Work Phone: GastroenterologyComment on above:Colon cancer screening (Primary Dx)Start: 09-16-2024 End: 46-30-2997Gvycbljmkomt consultation with Garret Dillard PA-C Work Phone: GastroenterologyStart: 09-07-2024 End: 10-78-7341Ydvkcx Falguni Rocha DPM Work Phone: [facility] [place] PODStart: 09-07-2024 End: 22-80-8670Vxiima Falguni Rocha DPM Work Phone: [facility] [place] PODStart: 09-07-2024 End: 61-39-9559Jbraua outpatient visit 15 minutesHarsha Rocha DPM Work Phone: noMS [place] PODComment on above:Verruca plantaris (Primary Dx); Foot pain, left; Plantar fasciitis; Contracture of left ankleStart: 09-07-2024 End: 71-24-5632krvozrhtalKHVHWUIW A BROWNNot AvailableStart: 08-25-2024 End: 65-41-7259Hlumeo outpatient new 30 minutesNicaaron Rocha DPM Work Phone: [facility] [place] PODComment on above:Neoplasm of uncertain behavior of skin (Primary Dx); Verruca plantaris; Foot pain, left; Heel spur, left; Plantar fasciitis; Contracture of left ankleStart: 08-25-2024 End: 08-80-1601zaimgcykazAFLKTROU A BROWNNot AvailableStart: 08-25-2024 End: 40-54-9867Ayclsx flowsheetNicholyancy Rocha DPM Work Phone: [facility] [place] PODStart: 08-25-2024 End: 30-72-5447Dkikcn flowsheetNicaaron Rocha DPM Work Phone: [facility] [place] PODStart: 06-15-2024 End: 19-34-2967hdtzespczkGTRIO FAZIONot AvailableStart: 05-04-2024 End: 61-39-7466Xigfew flowsheetCorey Meg DO Work Phone: n[facility] BCP OBStart: 05-04-2024 End: 93-27-2129Xpfxzp flowsheetCorey Meg DO Work Phone: N[facility] BCP OBStart: 05-04-2024 End: 14-61-3015Erocvdxes Result EncounterCorey Meg DO Work Phone: NOOO External Department UnsolicitedStart: 05-04-2024 End: 07-42-5751qgfhlfmzijHHDRB FAZIONot AvailableStart: 05-04-2024 End: 59-34-9382Igcyhkk encounter procedureCorey Meg DO Work Phone: [facility] Work Phone: Start: 05-04-2024 End: 40-83-6479Kvcafkar preventive med est patient 40-64yrsCorey Meg DO Work Phone: [facility] BCP OBComment on above:Well woman exam with routine gynecological exam; Breast cancer screening by mammogramStart: 01-09-2023 End: 92-90-6025lkjsgrttuzVgdmdl Braun Other [employer] Other Start: 85-35-7887Vzmhrr outpatient visit 15 minutes [facility] ClinicStart: 04-20-2022 End: 53-58-3098aflefkonqcFU KAYLEE BARONEFacility:O5Snonh: 04-03-2022 End: 35-86-1362kcywgkgnatTW FLORA FAZIOFacility:H1 Procedures DateProcedureProcedure DetailPerforming ClinicianStart: 05-97-9697Bvgisyffgjv Harsha Rocha DPM Work Phone: Start: 04-77-5687QXD,APTIMA HPV,AGE GDLNCorey Meg DO Work Phone: Plan of Treatment DateCare ActivityDetailAuthorStart: 21-64-2698Dijjbygux for malignant neoplasm of breastNOMS HealthcareStart: 05-10-2025 End: 84-92-4122Zwvwmro encounter iogtwobyk66/22/2025 9:00 AM EDT Office Visit [facility] [address] [place] [address] Flora Weaver, DO [address] [place] [address] [facility] BCP OBStart: 10-05-2024 End: 65-26-1829Btejnah encounter /17/2025 1:00 PM EST Appointment [facility] Endoscopy [facility] [address] [facility] [address] [place] [address] [place] [id number] Clinic Endoscopy [facility] HospitalStart: 09-07-2024 End: 39-25-5453Wrarhtj encounter procedureNOMS [place] PODComment on above:Verruca plantaris (Primary Dx); Foot pain, left; Plantar fasciitis; Contracture of left ankleStart: 08-25-2024 End: 44-05-6591Ekxnqop encounter obdengatx44/07/2025 4:10 PM EST Office Visit [facility] [place] [facility] [address] [place] [id number] Harsha Rocha DPM [address] [facility] [address] [place] [address] ArrivedNOCARNEGIE [facility] [place] PODComment on above:ArrivedStart: 06-15-2024 End: 15-80-3576Obxczlqpjtmp / ancillary services swnrsnrcyh79/28/2024 3:30 PM EDT Ancillary Procedure [facility] [address] [place] [phone] [facility]MINISTRATIONYStart: 05-04-2024 End: 84-78-0575PF Breast - bilateral ScreeningBilateral screening mammogram Imaging Routine Breast cancer screening by mammogram Expected: 05/04/2024 (Approximate), Expires: 07/04/2025[facility] Work Phone: comment on above:Expected: 05/04/2024 (Approximate), Expires: 07/04/2025Start: 90-36-8150Utnoc-19 Vaccine ( season)Covid- 19 Vaccine ()[facility]: 25-78-4194Fbdwgmenn vaccinationInfluenza Vaccine (#1)[facility] HealthcareStart: 72-29-7412Zzzlwgii ScreeningDiabetes ScreeningMercy Health Tiffin Hospitaltart: 66-31-9358Dgigo panelLipid ScreeningMercy Health Tiffin Hospitaltart: 28-78-1671Tmdqtwrbr for malignant neoplasm of colonMercy Health Tiffin Hospitaltart: 63-85-3241Vngptkhlt for malignant neoplasm of cervix Cervical Cancer ScreeningMercy Health Tiffin Hospitaltart: 90-78-4578Vyqytlaeo B Vaccine (1 of 3 - 19+ 3-dose series)Hepatitis B Vaccine (1 of 3 - 19+ 3-dose series) [facility]: 80-00-4693Kycpy microalbumin profileDTaP,Tdap,Td Vaccine (1 - Tdap)[facility] [facility]: 63-93-3287Jseuiab ScreeningAnxiety Screening [facility]: 27-86-9803Ztfrbbyebw ScreeningDepression Screening [facility]: 42-68-2990Ctbmgbign C screeningHepatitis C Screening [facility]: 47-95-9913XDW screeningHIV ScreeningOhiohealth Van Wert Hospital Start: 55-21-9713Kmhbnrybf for malignant neoplasm of colonSaint [facility] West End: 42-31-2678Vilgpvqgf colonoscopyCOLONOSCOPY SCREENING Endoscopy Routine Colon cancer screening 1 Occurrences starting 09/16/2024 until 09/16/2025 [facility] Work Phone: comment on above:1 Occurrences starting 09/16/2024 until 09/16/2025THIN PREP TIS PAP AND HR HPV DNATHIN PREP TIS PAP AND HR HPV DNA Pathology and Cytology Routine Well woman exam with routine gynecological exam Ordered: 05/04/2024[facility] WestComment on above:Ordered: 05/04/2024 Payers DatePayer CategoryPayerPolicy [id number] Sub[facility] Plan / Payer (Effective 2020-Present) Name: Nayana Camargo Relation to Subscriber: Spouse Name: PIERRE CAMARGO Date of : 1978 (Home) Address: [address] [place] [id number] PayerID: Not on file Type: Not on file Address: [facility] [address] [place] [id number] 01-93-7451Zfntpmm8.2.840.298238.1.13.693.2.7.3.772794.41982-64-0958Ihbeebj [id number] .16.840.1.680923.3.57[id number] 2.16.840.1.205457.3.57[id number] 2.16.840.1.673689.3.57[id number] 2..840.1.857170.3.579.[id number] 2.16.840.1.875227.3.57[id number] 2..840.1.214924.3.57[id number] 2.16.840.1.675977.3.579.2.[id number] Social History DateTypeDetailFacilityUnknown if ever smokedEldridge [employer] Other Start: 04-30-2023 End: 67-96-4469Ckv Assigned At [facility] [employer] Other Start: 07-08-2015 End: 74-74-0810Vstudgq smoking status NHISEx-smokerNOMS HealthcareHistory of tobacco useCurrent smokerNOMS HealthcareHistory of tobacco useCigarette Smoker [facility] HealthcareStart: 02-27-2023 End: 83-07-1784Alclgzkxqa smoked current (pack per day) - Reported1.5N[facility]S HealthcareStart: 02-27-2023 End: 72-69-5613Swpocei use and exposureSmokeless tobacco non-userNOMS Healthcare Start: 08-08-2016 End: 84-63-7328Clytmivdz beverage intakeCurrent drinker of alcohol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
--- OUTSIDE RECORDS SUMMARY | 2025-06-16 20:03 | XMS_ITS | Encounter Summary ---
Author Organization [facility] Address [address] [place] [address] Care Team Providers Care Tire Bladder Maker Name Role Phone Kaylee White MD Primary Care Provider [phone] Encounter Details DateTypeDepartmentCare Team (Latest Contact Info)Zvgykaaqkhs74/29/2025amboo flowsheet [facility] [address] [facility] [place] [address] Laurel Burnett, SUPERVISOR PUTTY AND CALUKING [address] [facility] [place] [address] Social History Tobacco UseTypesPacks/DayYears UsedDateSmoking Tobacco: FormerCigarettes1.58 Smokeless Tobacco: NeverAlcohol UseStandard Drinks/WeekCommentsYes2 (1 standard drink = 0.6 oz pure alcohol)caffeine: more than 4 cups per dayCommentsNo Sex and Gender InformationValueDate RecordedSex Assigned at BirthFemale 02/26/2023 11:45 AM EDTLegal TecQxghzw22/15/2023 6:50 PM EDTGender Identity Caxfag7302/26/2023 11:45 AM EDTSexual SmtrgqtzvahNltrzaam77/11/2023 11:45 AM EDT documented as of this encounter Plan of Treatment DateTypeDepartmentCare Team (Latest Contact Info)Oqxiljrvqhz10/26/2025 4:30 PM ESTAncillary Procedure [facility] [address] [place] [address] 06/23/2026 9:00 AM ESTProcedure Visit [facility] [address] [facility] [place] [address] Prince Weaver DO [address] [facility] [place] [address] documented as of this encounter Visit Diagnoses Not on filedocumented in this encounter Care Teams Team MemberRelationshipSpecialtyStart DateEnd Date Kaylee White MD [address] [place] [address] [place] [address] PCP - GeneralFamily Medicine02/27/23documented as of this encounter
--- OUTSIDE RECORDS SUMMARY | 2025-06-16 20:03 | XMS_ITS | Clinical Summary ---
Author Organization [facility] Address [address] [place], [place] [address] Care Team Providers Care Video Systems Engineer Name Role Phone Jany Mata MD Primary Care Provider [phone] Kaylee White MD Unavailable [phone] Allergies Active AllergyReactionsCriticalityNoted DateCommentsPovidone-IodineHives 07/08/2015 Medications MedicationSigDispense QuantityRefillsLast FilledStart DateEnd DateStatus levothyroxine (SYNTHROID) 150 mcg tablet Take 1 tablet by mouth daily before breakfast. 90 tablet Active Active Problems ProblemNoted DateDiagnosed DateHistory of thyroid cmqdoq3008/08/2016Thyroid cancer 07/08/2015 Social History Tobacco UseTypesPacks/DayYears UsedDateSmoking Tobacco: FormerAlcohol Use Standard Drinks/WeekCommentsYes0 (1 standard drink = 0.6 oz pure alcohol)Area Deprivation IndexAnswerDate RecordedNational Score (1-100), lower number is lower ypiy011809/16/2024State Score (1-10), lower number is lower bcgy96009/16/2024 Data from: https://www.neighborhoodatlas.medicine.[facility].edu/. Last address used for eycqgryq[address] [facility]09/16/2024CommentsNoSex and Gender InformationValueDate RecordedSex Assigned at BirthNot on fileLegal SexFemale 07/04/2015 10:51 AM ESTGender IdentityNot on fileSexual OrientationNot on file Last Filed Vital Signs Vital SignReadingTime TakenCommentsBlood Zjbprfji078/80110/09/2015 10:29 AM EST Rfxfj282507/30/2016 8:41 AM UOHVxlzakroutx47.8 ??C (98.2 ??F)07/30/2016 8:41 AM ESTRespiratory Rate--Oxygen Saturation--Inhaled Oxygen Concentration--Weight 105.7 kg (233 lb)08/08/2016 10:29 AM FNVVmrwwc432.3 cm (5' 9 )07/30/2016 8:41 AM ESTBody Mass Index34.41109/30/2015 8:41 AM EST Plan of Treatment Health MaintenanceDue DateLast DoneCommentsAnxiety Psaksvrso45/06/1995Depression Ldukblarb17/06/1995HIV Upzyrermo46/06/1995Hepatitis C Jawkfonkm12/06/1995 DTaP,Tdap,Td Vaccine (1 - Tdap)1995Hepatitis B Vaccine (1 of 3 - 19+ 3- dose series)1995Cervical Cancer Muzlwwdmi32/06/1998CT Colonography 2Cologuard (FIT-DNA)7639Vucosdsyeds13/06/2022Colorectal Cancer Pckjmjcjq05/06/2022Diabetes Bicjihdtg66/06/2022Fecal Occult Blood2021Lipid Bcqkrpubu35/06/9424Jgabnnvshtolt14/06/2022Covid-19 Vaccine ( season) 2025Influenza Vaccine (#1)2025Mammogram Wnheltrhg55/28/2025 06/15/2024, 06/15/2024 Insurance Care Teams Team MemberRelationshipSpecialtyStart DateEnd Jany Mata MD [address] [place] [address] [facility]CP - [facility]Ste[facility] Hospitally Kuxbqkpe44/16/15 Kaylee White MD [address] [place] [address] [facility] Medicine08/28/24
--- OUTSIDE RECORDS SUMMARY | 2025-06-16 20:03 | XMS_ITS | Encounter Summary ---
Author Organization [facility] Address [address] [place] [address] Care Team Providers Care Two Way Radio Installer Name Role Phone Kaylee White MD Primary Care Provider [phone] Encounter Details DateTypeDepartmentCare Team (Latest Contact Info)Ddvvwfbworr77/23/2025Orders Only [facility] [address] [place] [address] Janet Cordova LPN [address] [place] [id number] Social History Tobacco UseTypesPacks/DayYears UsedDateSmoking Tobacco: FormerCigarettes1.58 Smokeless Tobacco: NeverAlcohol UseStandard Drinks/WeekCommentsYes2 (1 standard drink = 0.6 oz pure alcohol)caffeine: more than 4 cups per dayCommentsNo Sex and Gender InformationValueDate RecordedSex Assigned at BirthFemale 02/26/2023 11:45 AM EDTLegal UoaPoimvo70/15/2023 6:50 PM EDTGender Identity Ezcowd5002/26/2023 11:45 AM EDTSexual ZhygognzlmqXnbunmue77/11/2023 11:45 AM EDT documented as of this encounter Plan of Treatment DateTypeDepartmentCare Team (Latest Contact Info)Nndsflmjhbc29/26/2025 4:30 PM ESTAncillary Procedure [facility] [address] [place] [address] 06/23/2026 9:00 AM ESTProcedure Visit [facility] [address] [facility] [place] [address] Prince Weaver DO [address] [facility] [address] [place], [place] [address] documented as of this encounter Procedures Procedure NamePriorityDate/TimeAssociated DiagnosisCommentsPAP TEST, EXTERNAL Alwilyj8405/04/2024 12:00 AM EDTdocumented in this encounter Results * PAP TEST, EXTERNAL (05/04/2024 12:00 AM EDT) Narrative Authorizing ProviderResult TypeResult StatusFazio Nurse [facility] Ob[facility] CYTOLOGY ORDERABLESFinal ResultPerforming OrganizationAddressCity/State/ZIP CodePhone Number EXTERNAL LAB documented in this encounter Visit Diagnoses Not on filedocumented in this encounter Care Teams Team MemberRelationshipSpecialtyStart DateEnd Date Kaylee White MD [address] [facility] [place] [address] PCP - GeneralFamily Medicine02/27/23documented as of this encounter
--- OUTSIDE RECORDS SUMMARY | 2025-06-16 20:03 | XMS_ITS ---
Author Organization [facility] Address [address] [place], [place] [address] Care Team Providers Care Beater Lead Name Role Phone Jany Mata MD Primary Care Provider [phone] Kaylee White MD Unavailable [phone] Active Problems ProblemNoted DateDiagnosed DateHistory of thyroid nyaugw2808/08/2016Thyroid cancer 07/08/2015 Current Treatment and Therapy Plans No current plan information found. Past Treatment and Therapy Plans Plan NameStart DateDiscontinue DateTreatment MedicationsDiscontinue ReasonPlan ProviderCyclesTHYROTROPIN ELADIO 0.9 MG D1,2 - Q28D1/* thyrotropin eladio (THYROGEN) Jorge Miller MD1 of 1 cycle started
--- OUTSIDE RECORDS SUMMARY | 2025-06-16 20:03 | XMS_ITS | Clinical Summary ---
Author Organization [facility] Address [address] [place] [address] Care Team Providers Care Office Administrator Name Role Phone Kaylee White MD Primary Care Provider [phone] Allergies Active AllergyReactionsCriticalityNoted WdmhOlmpiywuUxrqzqKeuce27/11/1999 Other Reaction(s): Unknown Jkkwrriwbz18/12/2023 Other Reaction(s): Unknown Povidone Knzzht5902/27/2023 Other Reaction(s): Unknown Povidone-TjvczdQxbwi49/20/2015 Medications MedicationSigDispense QuantityRefillsLast FilledStart DateEnd DateStatus levothyroxine (Synthroid, Levoxyl) 175 MCG tablet 05/29/2015ctive losartan (Cozaar) 50 MG tablet 05/29/2017Active hydroCHLOROthiazide (HYDRODiuril) 25 MG tablet 05/29/2017Active Active Problems No known active problems Encounters DateTypeDepartmentCare UxdzMjtqjlwmozt89/29/2025 9:00 AM EDTProcedure Visit [facility] [address] [place] [address] Laurel Burnett NP Well woman exam with routine gynecological exam06/16/2025amboo flowsheet [facility] [address] [place] [address] Laurel Burnett NP 06/15/20251713Iehdta40/23/2025Orders Only [facility] [address] [place] [address] Janet Cordova LPN 06/01/2025Telephone [facility] [address] [facility] [place] [address] Laurel Burnett, TRUDY from Last 3 Months Family History Medical HistoryRelationNameCommentsHeart diseaseMaternal GrandmotherCancerMother DiabetesMotherRelationNameStatusCommentsMaternal GrandfatherDeceasedMaternal GrandmotherDeceasedMotherDeceased Social History Tobacco UseTypesPacks/DayYears UsedDateSmoking Tobacco: FormerCigarettes1.58 Smokeless Tobacco: Never Tobacco Cessation:Counseling Given: Yes Alcohol UseStandard Drinks/WeekCommentsYes2 (1 standard drink = 0.6 oz pure alcohol)caffeine: more than 4 cups per dayCommentsNoSex and Gender InformationValueDate RecordedSex Assigned at WtalsKgkcpl01/11/2023 11:45 AM EDT Legal IuuVzbdbv06/15/2023 6:50 PM EDTGender QhdrznfdJjskbg21/11/2023 11:45 AM EDTSexual HjayussrwovXevlqlyu17/11/2023 11:45 AM EDT Last Filed Vital Signs Vital SignReadingTime TakenCommentsBlood Gdioakvw578/8210 9:08 AM EDT Pulse--Temperature--Respiratory Tnbv019209/07/2024 8:43 AM ESTOxygen Saturation-- Inhaled Oxygen Concentration--Uralcy570 kg (256 lb 12 oz)06/16/2025 9:08 AM EDT Kisjqw493.3 cm (5' 9 )09/07/2024 8:43 AM ESTBody Mass Index37.9201 8:43 AM EST Plan of Treatment DateTypeDepartmentCare Team (Latest Contact Info)Rwlsgisylvj28/26/2025 4:30 PM ESTAncillary Procedure [facility] [address] [place] [address] 06/23/2026 9:00 AM ESTProcedure Visit [facility] [address] [place] [address] Prince Weaver, [address] [place] [address] [place] [address] Insurance Care Teams Team MemberRelationshipSpecialtyStart DateEnd Date Kaylee White MD [address] [place] [id number] PCP - GeneralFamily Medicine02/27/23
--- OUTSIDE RECORDS SUMMARY | 2025-06-16 20:03 | XMS_ITS | Encounter Summary ---
Author Organization [facility] Address [address] [place] [address] Care Team Providers Care Escrow Clerk Name Role Phone Kaylee White MD Primary Care Provider [phone] Encounter Details DateTypeDepartmentCare Team (Latest Contact Info)Otwwolpfrfu20/28/2025Travel Social History Tobacco UseTypesPacks/DayYears UsedDateSmoking Tobacco: FormerCigarettes1.58 Smokeless Tobacco: NeverAlcohol UseStandard Drinks/WeekCommentsYes2 (1 standard drink = 0.6 oz pure alcohol)caffeine: more than 4 cups per dayCommentsNo Sex and Gender InformationValueDate RecordedSex Assigned at BirthFemale 02/26/2023 11:45 AM EDTLegal VesBocovg34/15/2023 6:50 PM EDTGender Identity Spwlwy7902/26/2023 11:45 AM EDTSexual PauavllidgfNessbhqx52/11/2023 11:45 AM EDT documented as of this encounter Plan of Treatment DateTypeDepartmentCare Team (Latest Contact Info)Gmsjvatmbuj41/26/2025 4:30 PM ESTAncillary Procedure [facility] [address] [place] [id number] 06/23/2026 9:00 AM ESTProcedure Visit [facility] [address] [place] [id number] Prince Weaver DO [address] [facility] [address] [place], [place] [id number] documented as of this encounter Visit Diagnoses Not on filedocumented in this encounter Care Teams Team MemberRelationshipSpecialtyStart DateEnd Date Kaylee White MD [address] [place] [address] PCP - GeneralFamily Medicine02/27/23documented as of this encounter
== END 2025-06-16 20:01 | disposition home or self-care (01) ==
LOC: LAB 20:00
PROVIDERS: PCP Family Medicine; Visit Provider Nurse Practitioner Family
DX: Z01.419 Encounter for gynecological examination (general) (routine) without abnormal findings (principal)
CPT/HCPCS: 87624; 88175